=== PATIENT | male | born 1945 | race Caucasian/White ===

== ENCOUNTER 2017-02-23 15:58 | Inpatient (IN) | payer MEDICARE ==
[~2017-02-23] VITALS: Ht 182.9 cm; Wt 86.8 kg
[2017-02-23 19:24] LABS: HEMATOCRIT 47.6 % (39.0-50.0); IMMATURE GRANULOCYTES 0.6 % (0.0-1.0); MEAN CORPUSCULAR HGB 30.2 pG CALC (26.0-32.0); MEAN CORPUSCULAR HGB CONC 33.6 g/L CALC (32.0-36.0); NEUT# 6.94 thou/uL (1.82-7.42); RED BLOOD COUNT 5.29 mill/uL (4.70-6.10); RED CELL DISTRI WIDTH 13.1 % (11.5-15.5)
[2017-02-23 19:30] LABS: ALKALINE PHOSPHATASE 91 u/l (38-126); ANION GAP 15 (6-22 (CALC)); BILIRUBIN, TOTAL 0.9 mg/dL (0.0-1.4); BUN 16 mg/dL (8-23); BUN/CREATININE RATIO 16 (12-20 (CALC)); CALCIUM 9.2 mg/dL (8.4-10.2); CARBON DIOXIDE 26 mmol/l (22-30); CHLORIDE 101 mmol/l (95-108); CREATININE 0.9 mg/dL (0.7-1.3); GFR > 60 ML/MIN (>=60 (CALC)); GFR FOR AFR.AMER. > 60 ML/MIN (>=60 (CALC)); GLUCOSE 275 mg/dL (82-115); POTASSIUM 4.5 mmol/l (3.5-5.1); SGOT/AST 23 u/l (19-48); SGPT/ALT 25 u/l (11-66); SODIUM 137 mmol/l (137-146); TOTAL PROTEIN 7.2 g/dL (6.3-8.2)
[2017-02-23 19:32] LABS: PROTHROMBIN TIME 10.7 SECONDS (9.0-12.5)
[2017-02-23 19:43] LABS: MYOGLOBIN 34 ng/mL (0 - 121)
[2017-02-23] MEDS ORDERED: CRESTOR40 MG PO ×2 (21:58→21:59)
[2017-02-23] MEDS ORDERED: AMLODIPINE5 MG PO (21:59)
[2017-02-23] MEDS ORDERED: XARELTO10 MG PO (22:00)
[2017-02-23 22:24] LABS: URINE BILIRUBIN - DIPSTICK NEGATIVE (NEGATIVE); URINE BLOOD DIPSTICK MODERATE (NEGATIVE); URINE CLARITY SLIGHT CLOUDY; URINE COLOR YELLOW; URINE GLUCOSE - DIPSTICK >=1000 mg/dL (NEGATIVE); URINE KETONE TRACE mg/dL (NEGATIVE); URINE LEUK ESTERASE TRACE (NEGATIVE); URINE NITRITE - DIPSTICK NEGATIVE (Negative); URINE PROTEIN - DIPSTICK TRACE mg/dL (NEG-TRACE); URINE SPECIFIC GRAVITY 1.015
[2017-02-23 22:30] LABS: URINE WBC 50-100 WBC/hpf (0-5)
[2017-02-23 22:31] LABS: BARBITURATES NEGATIVE (NEGATIVE); COCAINE NEGATIVE (NEGATIVE); METHADONE NEGATIVE (NEGATIVE); OXCYCODONE NEGATIVE (NEGATIVE); TETRAHYDROCANNABIONOL NEGATIVE (NEGATIVE); TRICYLIC ANTIDEPRESSANTS NEGATIVE (NEGATIVE); URINE SQUAMOUS EPITHELIAL CELL FEW EPI/hpf (0-FEW)
[2017-02-23] MEDS ORDERED: ACCUPRIL5 MG PO (23:39)
[2017-02-23] MEDS ORDERED: LANTUS SOL100 UNIT/M SC (23:39)
[2017-02-24] VITALS (14 sets, daily range): BP systolic 118–197; BP diastolic 59–111
[2017-02-24 06:11] LABS: HEMATOCRIT 42.7 % (39.0-50.0); HEMOGLOBIN 14.4 g/dl (14.0-18.0); MEAN CELL VOLUME 90.9 fL CALC (80.0-100.0); MEAN CORPUSCULAR HGB 30.6 pG CALC (26.0-32.0); MEAN CORPUSCULAR HGB CONC 33.7 g/L CALC (32.0-36.0); RED BLOOD COUNT 4.7 mill/uL (4.70-6.10)
[2017-02-24 06:28] LABS: ANION GAP 15 (6-22 (CALC)); BUN 19 mg/dL (8-23); BUN/CREATININE RATIO 20 (12-20 (CALC)); CALCIUM 8.8 mg/dL (8.4-10.2); CALCULATED LDLCHOLESTEROL 142 mg/dL (62-129 (CALC)); CARBON DIOXIDE 26 mmol/l (22-30); CHLORIDE 102 mmol/l (95-108); CHOLESTEROL HDL RATIO 7.8 (<4.4 (CALC)); GFR > 60 ML/MIN (>=60 (CALC)); GFR FOR AFR.AMER. > 60 ML/MIN (>=60 (CALC)); GLUCOSE 228 mg/dL (82-115); HDL CHOLESTEROL 29 mg/dL (>=40); POTASSIUM 4.2 mmol/l (3.5-5.1); SODIUM 139 mmol/l (137-146); TOTAL CHOLESTEROL 229 mg/dl (0-199); TOTAL TRIGLYCERIDES 286 mg/dl (30-149); VLDL CHOLESTROL 57 mg/dl (0-38 (CALC))
== END 2017-02-24 18:55 | disposition short-term general hospital (02) | DRG 309 ==
LOC: ED 15:58 → ED-I 19:47 → ED 21:01 → ICU 21:02
PROVIDERS: Emergency Medicine; ADMIT Internal Medicine; ATTEND Internal Medicine
DX: I47.2 Ventricular tachycardia (principal); I69.951 Hemiplegia and hemiparesis following unspecified cerebrovascular disease affecting right dominant side; E11.69 Type 2 diabetes mellitus with other specified complication; I25.119 Atherosclerotic heart disease of native coronary artery with unspecified angina pectoris; I44.0 Atrioventricular block, first degree; I48.0 Paroxysmal atrial fibrillation; I10 Essential (primary) hypertension; H54.42 Blindness, left eye, normal vision right eye; E78.2 Mixed hyperlipidemia; G47.33 Obstructive sleep apnea (adult) (pediatric); F32.9 Major depressive disorder, single episode, unspecified; Z85.46 Personal history of malignant neoplasm of prostate; Z95.5 Presence of coronary angioplasty implant and graft; Z79.4 Long term (current) use of insulin; Z91.11 Patient's noncompliance with dietary regimen; Z91.14 Patient's other noncompliance with medication regimen; Z79.01 Long term (current) use of anticoagulants